=== PATIENT | female | born 1995 | race Caucasian/White ===

== ENCOUNTER 2019-03-15 03:58 | Emergency (ER) | payer OTHER, BC ==
[2019-03-15 04:08] VITALS: BP 122/83; PULSE 92; RESP 18; TEMP 98.1
--- NOTE | 2019-03-15 04:43 | ED ---
General Adult HPI - General Chief complaint: Neck Pain/Injury Stated complaint: Neck pain Source: patient Mode of arrival: ambulatory Limitations: physical limitation - History of Present Illness Initial comments: Patient is a 23-year-old female who presents to the emergency department today for evaluation of right-sided rib pain. Patient reports she began experiencing some discomfort in her right shoulder and rib area last week. On Friday she was evaluated by a chiropractor who advised her she had a rib out of place. She had a chiropractic adjustment and had athletic tape place. Patient reports that since that adjustment she feels that she is having muscle tightness around her ribs on that side and radiating to the other side and upper neck. Patient denies any headache, vision changes, focal neurologic deficits. She denies any pain with movement of her neck. She denies any ringing in her ears. Patient reports she just feels like all of her muscles are very tight. 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 She denies any fevers, chills, exertional chest pain, shortness of breath. She denies any past medical history. She has no history of DVT PE in the past. She denies any palpitations or exertional dyspnea. - Related Data Home Medications Medication Instructions Recorded Confirmed buPROPion HCL [Wellbutrin XL] 300 mg PO DAILY 03/15/19 03/15/19 clomiPRAMINE HCL 75 mg PO DAILY 03/15/19 03/15/19 Previous Rx's Medication Instructions Recorded Ibuprofen [Motrin] 800 mg PO TID #30 tab 03/15/19 Methocarbamol [Robaxin-750] 750 mg PO TID #30 tablet 03/15/19 Allergies Allergy/AdvReac Type Severity Reaction Status Date / Time No Known Allergies Allergy Verified 03/15/19 04:08 Review of Systems ROS Statement: Those systems with pertinent positive or pertinent negative responses have been documented in the HPI. ROS Other: All systems not noted in ROS Statement are negative. Past Medical History Past Medical History: No Reported History History of Any Multi-Drug Resistant Organisms: None Reported Past Surgical History: No Surgical Hx Reported Past Psychological History: Anxiety, Depression Smoking Status: Never smoker Past Alcohol Use History: None Reported Past Drug Use History: None Reported General Exam - General Exam Comments Initial Comments: Physical Exam GENERAL: Patient is well-developed and well-nourished. Patient is nontoxic and well- hydrated and is in no distress. HENT: Normocephalic, Atraumatic. EYES: PERRL, EOMI PULMONARY: Unlabored respirations. No audible rales rhonchi or wheezing was noted. CARDIOVASCULAR: There is a regular rate and rhythm without any murmurs gallops or rubs. No carotid bruits ABDOMEN: Soft and nontender with normal bowel sounds. SKIN: Skin is clear with no lesions or rashes and otherwise unremarkable. : Deferred NEUROLOGIC: Patient is alert and oriented x3. Moving all extremities spontaneously MUSCULOSKELETAL: Normal extremities with adequate strength and full range of motion. No lower extremity swelling or edema. No calf tenderness. Tenderness to palpation in the costochondral junction, tenderness to palpation along ribs 2 and 3 on the right, tenderness to palpation her tonic musculature in the right sided trapezius PSYCHIATRIC: Normal psychiatric evaluation. 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 Patient's been experiencing upper chest and shoulder pain which is worse with movement. She was evaluated and treated by chiropractor reports that she kind of feels like she is having muscle spasms at that time. Physical exam is unremarkable. There is reproducible muscular skeletal chest pain. This time we'll plan to treat for costochondritis and muscle spasm. Patient be given Toradol and Valium in the emergency department she'll be provided with a work note for today and discharged home with Motrin and Robaxin. All questions pertaining care were answered return parameters were discussed patient was discharged home in stable condition. Disposition Clinical Impression: Costochondral chest pain Disposition: HOME SELF-CARE Condition: Stable Instructions (If sedation given, give patient instructions): Costochondritis (ED) Prescriptions: Ibuprofen [Motrin] 800 mg PO TID #30 tab Methocarbamol [Robaxin-750] 750 mg PO TID #30 tablet Is patient prescribed a controlled substance at d/c from ED?: No Referrals: Karin Grier DO [Primary Care Provider] - 1-2 days
[2019-03-15] MEDS ORDERED: DIAZEPAM 5 MG TAB PO STA (05:06)
[2019-03-15] MEDS ORDERED: KETOROLAC 30 MG/ML 1 ML VIAL IM STA (05:06)
== END 2019-03-15 05:46 | disposition home or self-care (01) ==
LOC: EC 03:58
DX: R07.1 Chest pain on breathing (principal); M54.2 Cervicalgia; F41.9 Anxiety disorder, unspecified; F32.9 Major depressive disorder, single episode, unspecified; Z79.899 Other long term (current) drug therapy
CPT/HCPCS: 99283; 96372; J1885

== ENCOUNTER 2020-07-21 00:05 | Outpatient (CLI) | payer OTHER, BC ==
[2020-07-21] MEDS ORDERED: LACTATED RINGERS 1,000 ML IV SCH (01:15)
[2020-07-21 01:17] LABS: Amorphous Sediment,Urine Rare /hpf; Appearance,Urine Cloudy (Clear); Bilirubin,Urine Negative (Negative); Blood,Urine Negative (Negative); Color,Urine Light Yellow; Glucose,Urine (UA) Negative (Negative); Ketones,Urine Negative (Negative); Leukocyte Esterase,Urine Small (Negative); Mucus,Urine Rare /hpf; Nitrite,Urine Negative (Negative); PH, Urine 6.5 (5.0-8.0); Protein,Urine Negative (Negative); RBC,Urine 1 /hpf (0-5); Specific Gravity,Urine 1.008 (1.001-1.035); Squamous Epithelial Cell,Urine 1 /hpf (0-4); Urobilinogen,Urine <2.0 mg/dL (<2.0); WBC,Urine 8 /hpf (0-5)
[2020-07-21] MEDS ORDERED: TERBUTALINE 1 MG/ML VIAL SQ PRN (01:52)
[2020-07-21 03:07] VITALS: RESP 16; TEMP 97.8
[2020-07-21 03:10] VITALS: BP 127/63; PULSE 76
--- NOTE | 2020-07-29 09:17 | P.MSEPDOC ---
Presenting Problems - Arrival Data Date of Arrival on Unit: 07/21/20 Time of Arrival on Unit: 00:05 Mode of Transport: Ambulatory - Complaint OB-Reason for Admission/Chief Complaint: Decreased Movement Comment: Intermittant cramping. Medical History - Information : 1 Para: 0 Term: 0 : 0 Abortions: Spontaneous or Elective: 0 Number of Living Children: 0 - Gestational Age Gestational Age by REGINA (wks/days): 32 Weeks and 2 Days Review of Systems - Review of Systems Constitutional: No problems Breast: No problems ENT: No problems Cardiovascular: No problems Respiratory: No problems Gastrointestinal: No problems Genitourinary: No problems Musculoskeletal: No problems Neurological: No problems Skin: No problems Vital Signs - Temperature Temperature: 97.8 F - Pulse Right Brachial Pulse Rate: 76 Pulse Assessment Method: Automatic Cuff - Respirations Respiratory Rate: 16 Oxygen Delivery Method: Room Air O2 Sat by Pulse Oximetry: 99 - Blood Pressure Right Arm Blood Pressure: 127/63 Blood Pressure Mean: 84 Blood Pressure Source: Automatic Cuff Medical Screen Scoring (Pre) - Cervical Exam Dilation: 1-3 cm = 1 Membranes: Intact - Uterine Contractions Frequency: < 36 weeks = 6 Duration: N/A Intensity: N/A - Maternal Vital Signs Maternal Temperature: N/A Maternal Blood Pressure: N/A Signs of Preeclampsia: N/A Maternal Respirations: N/A - Maternal Trauma Maternal Trauma: N/A - Assessment - Baby A Baseline FHR: 140 Heart Rate - NICHD Category: Category I (Normal) = 0 NST: Reactive Position: N/A Station: N/A - Total Score - Baby A Total Score - Baby A: 7 - Total Score - Baby B Total Score - Baby B: 7 - Total Score - Baby C Total Score - Baby C: 7 - Level of Risk - Baby A Level of Risk - Baby A: Medium (6-9) - Level of Risk - Baby B Level of Risk - Baby B: Medium (6-9) - Level of Risk - Baby C Level of Risk - Baby C: Medium (6-9) Physician Notification (Pre) - Physician Notified Physician Notified Date: 07/21/20 Physician Notified Time: 01:52 New Order Received: Yes - Notification Comment Comment: Dr. Mario given update on pt. No change in pt vag exam. Contractions remain 2-3. minutes a part. UA results read back to Order recieved to initiate Terbutiline. protocol. To call with pt update. Medical Screen Scoring (Post) - Cervical Exam Dilation: 1-3 cm = 1 Membranes: Intact - Uterine Contractions Frequency: N/A Duration: N/A Intensity: N/A - Maternal Vital Signs Maternal Temperature: N/A Maternal Blood Pressure: N/A Signs of Preeclampsia: N/A Maternal Respirations: N/A - Pain Assessment Pain Scale Used: Numeric (1 - 10) Pain Intensity: 0 - Maternal Trauma Maternal Trauma: N/A - Assessment - Baby A Heart Rate: 140 Heart Rate - NICHD Category: Category I (Normal) = 0 NST: Reactive Position: N/A Station: N/A - Total Score Total Score - Baby A: 1 Total Score - Baby B: 1 Total Score - Baby C: 1 - Post Treatment Level of Risk Post Treatment Level of Risk - Baby A: Low (0-5) Post Treatment Level of Risk - Baby B: Low (0-5) Post Treatment Level of Risk - Baby C: Low (0-5) Physician Notification (Post) - Physician Notified Physician Notified Date: 07/21/20 Physician Notified Time: 02:53 Physician/Practitioner Notified:: cosme Mario New Order Received: Yes - Notification Comment Comment: Dr. Mario given update on pt. Pt recieved once dose of 0.25 mg terbutaline. No. contractions noted per pt or toco following 30 minutes after. FHT with moderate. variability noted. VS WNL. Orders receieved to d/c pt to home. Disposition - Disposition OB Disposition: Discharge to home Discharge Date: 07/21/20 Discharge Time: 03:05 I agree with the RN Medical Screening Exam: Yes Risk & Benefit of care provided described in d/c instruction: Yes Diagnosis: FALSE LABOR BEFORE 37 COMPLETED WEEKS OF GEST, THIRD TRI
== END 2020-07-21 03:05 | disposition home or self-care (01) ==
LOC: FBPOP 00:05
PROVIDERS: ATTEND Obstetrics & Gynecology Obstetrics
DX: O47.03 False labor before 37 completed weeks of gestation, third trimester (principal); Z3A.32 32 weeks gestation of pregnancy
CPT/HCPCS: 59025; 99214; 96360; 96361; 96372; 81001; J3105

== ENCOUNTER 2020-09-06 14:15 | Inpatient (IN) | payer BC ==
[2020-09-06] MEDS ORDERED: LIDOCAINE 0.5% (PF) 5 MG/ML (50 ML SDV) SQ PRN (16:58)
[2020-09-06] MEDS ORDERED: OXYTOCIN 10 UNIT/ML 1 ML VIAL IM PRN (16:58)
[2020-09-06] MEDS ORDERED: BUTORPHANOL 1 MG/ML 1 ML VIAL IV PRN (16:58)
[2020-09-06] MEDS ORDERED: METHYLERGONOVINE 0.2 MG/ML 1 ML AMP IM PRN (16:58)
[2020-09-06] MEDS ORDERED: CARBOPROST TROMETHAMINE 250 MCG/ML 1 ML AMP IM PRN (16:58)
[2020-09-06] MEDS ORDERED: TERBUTALINE 1 MG/ML VIAL SQ PRN (16:58)
--- NOTE | 2020-09-06 16:58 | P.HPOB ---
History of Present Illness H&P Date: 09/06/20 Chief Complaint: IUP @ 39 0/7 weeks This is a 24-year-old 1 para 0 at 39 0/7 weeks that was seen in the office today for routine visit and ultrasound. Ultrasound revealing a normal-size fetus 60th percentile but amniotic fluid index was noted to be 4 consistent with a diagnosis of oligohydramnios. Patient was examined and noted to be 3 cm dilated in addition. Patient was noting decreased movement at that time. Patient denied contractions vaginal bleeding or loss of fluid at any time since the last visit. Patient has been receiving routine care with an essentially uncomplicated. On bloodwork this patient has a blood type of A+, rubella status immune, hepatitis B surface antigen negative, HIV negative, RPR nonreactive, GBS negative. Review of Systems Constitutional: Denies chills, Denies fatigue, Denies fever Ears, nose, mouth and throat: Denies headache Cardiovascular: Reports leg edema Respiratory: Denies dyspnea Gastrointestinal: Denies constipation, Denies diarrhea, Denies nausea, Denies vomiting Genitourinary: Reports Past Medical History Past Medical History: No Reported History History of Any Multi-Drug Resistant Organisms: None Reported Past Surgical History: No Surgical Hx Reported Additional Past Surgical History / Comment(s): WISDOM TEETH Past Anesthesia/Blood Transfusion Reactions: No Reported Reaction Past Psychological History: Anxiety, Depression Smoking Status: Never smoker Past Alcohol Use History: None Reported Past Drug Use History: None Reported - Past Family History Father Family Medical History: No Reported History Medications and Allergies Home Medications Medication Instructions Recorded Confirmed Type buPROPion HCL [Wellbutrin XL] 150 mg PO DAILY 03/15/19 09/06/20 History Pnv,Calcium 72/Iron/Folic Acid 1 tab PO DAILY 07/21/20 09/06/20 History [ Plus Tablet] metFORMIN HCL [metFORMIN HCL ER] 750 mg PO DAILY 07/21/20 09/06/20 History Allergies Allergy/AdvReac Type Severity Reaction Status Date / Time No Known Allergies Allergy Verified 09/06/20 14:43 Exam Osteopathic Statement: *. No significant issues noted on an osteopathic structural exam other than those noted in the History and Physical/Consult. Vital Signs Temp Pulse Resp BP Pulse Ox 09/06/20 14:43 96.3 F L 108 H 18 133/91 98 Intake and Output 09/06/20 09/06/20 09/06/20 06:59 14:59 22:59 Other: Weight 124.738 kg Targeted physical exam is performed in this date and a and p technician a well-nourished well-developed female in no obvious distress, breathing is noted to nonlabored, heart has regular rate and rhythm, abdomen is gravid and appropriate for gestational age, heart tones returned be category 1 she is not nayana, cervical exam is deferred as she was 3 cm in the office. Assessment and Plan (1) Term Current Visit: Yes Status: Acute Code(s): Z34.90 - ENCNTR FOR SUPRVSN OF NORMAL , UNSP, UNSP TRIMESTER SNOMED Code(s): 07612698 (2) Oligohydramnios Current Visit: Yes Status: Acute Code(s): O41.00X0 - OLIGOHYDRAMNIOS, UNSP TRIMESTER, NOT APPLICABLE OR UNSP SNOMED Code(s): 16703928 Plan: This very 4-year-old is admitted to labor and delivery at 39 0/7 weeks for oligohydramnios. Patient has category 1 heart tones, induction of labor began at 5 AM. Patient will be nothing by mouth after midnight. Patient states plan of care and all questions are answered.
[2020-09-06] MEDS ORDERED: OXYTOCIN 30 UNITS/500 ML NS 30 UNIT in SALINE 1 500ML.BAG IV SCH (17:00)
[2020-09-06 17:54] LABS: Basophils % (A) 0 %; Eosinophils # (A) 0.1 k/uL (0-0.7); Eosinophils % (A) 1 %; HCT 39.8 % (34.0-46.0); HGB 13.4 gm/dL (11.4-16.0); Lymphocytes # (A) 1.9 k/uL (1.0-4.8); Lymphocytes % (A) 16 %; MCH 27.8 pg (25.0-35.0); MCHC 33.6 g/dL (31.0-37.0); MCV 82.6 fL (80.0-100.0); Mean Platelet Volume 10.5; Monocytes # (A) 0.5 k/uL (0-1.0); Monocytes % (A) 5 %; Neutrophils % (A) 77 %; Platelet Count 173 k/uL (150-450); RBC 4.82 m/uL (3.80-5.40); RDW 14.8 % (11.5-15.5); WBC 11.7 k/uL (3.8-10.6)
[2020-09-06] MEDS: LACTATED RINGERS 1,000 ML IV SCH (19:40)
[2020-09-07] MEDS: LACTATED RINGERS 1,000 ML IV SCH ×2 (06:45)
[2020-09-07] MEDS ORDERED: PRENATAL VIT-IRON-FOLIC ACID 1 EACH CAP PO SCH (09:00)
[2020-09-07] MEDS ORDERED: SIMETHICONE 80 MG CHEWABLE PO PRN (12:57)
[2020-09-07] MEDS ORDERED: ZOLPIDEM 5 MG TAB PO PRN (12:57)
[2020-09-07] MEDS ORDERED: diphenhydrAMINE 50 MG/ML 1 ML VIAL IVP PRN ×2 (12:57)
[2020-09-07] MEDS ORDERED: HYDROcodone/APAP 5-325MG 1 EACH TAB PO PRN (12:57)
[2020-09-07] MEDS ORDERED: diphenhydrAMINE 50 MG CAP PO PRN (12:57)
[2020-09-07] MEDS ORDERED: BENZOCAINE/MENTHOL SPRAY 1 GM/SPRAY AEROSOL TOPICAL PRN (12:57)
[2020-09-07] MEDS ORDERED: HYDROCORTISONE 2.5% RECTAL CREAM 30 GM TUBE RECTAL PRN (12:57)
[2020-09-07] MEDS ORDERED: ACETAMINOPHEN TAB 325 MG TAB PO PRN (12:57)
[2020-09-07] MEDS ORDERED: diphenhydrAMINE 25 MG CAP PO PRN (12:57)
[2020-09-07] MEDS ORDERED: LANOLIN CREAM 5 GM TUBE TOPICAL PRN (12:57)
[2020-09-07] MEDS ORDERED: OXYTOCIN 20 UNITS/1000 ML NS 1,000 ML IV SCH (13:00)
--- NOTE | 2020-09-07 13:03 | P.PROBDLV ---
Vaginal Delivery Note - . Vaginal Delivery Note: this pleasant 24-year-old 1 para 0 at 39 1/7 weeks presented to labor and delivery yesterday afternoon diagnosis of oligohydramnios was made, amniotic fluid index was noted to be 4 in the office. Patient had category 1 heart tones throughout the night. This morning she was started on Pitocin for induction of labor, per hospital protocol. Pt did undergo amniotomy and scant fluid was obtained and it appeared clear. Patient progressed through labor eventually becoming uncomfortable and requesting Stadol 1. Patient declined epidural placement. Patient quickly progressed to complete began pushing and had a normal spontaneous vaginal delivery of an occiput posterior at 1239, weight of 6 lbs. 10 oz. or 3015 gms, Apgars of 8 and 9 at one and 5 minutes respectively. after two-minute delay the umbilical cord was doubly clamped and cut and the placenta was delivered spontaneously intact with a three-vessel cord being noted. On inspection of the patient's vaginal vault a second-degree vaginal laceration was noted, and this was repaired in the usual fashion with 3- 0 repeat after instillation of lidocaine. uterus was noted to be firm and below the umbilicus after delivery. Estimated blood loss 200 mL Patient and infant tolerated delivery well and are resting comfortably.
[2020-09-07] MEDS: buPROPion XL 150 MG TAB.ER.24H PO SCH (14:58)
[2020-09-07] MEDS: IBUPROFEN 600 MG TAB PO PRN (14:58)
[2020-09-08] MEDS: IBUPROFEN 600 MG TAB PO PRN (00:13)
[2020-09-08 01:01] VITALS: RESP 16
[2020-09-08] MEDS: SENNOSIDES-DOCUSATE SODIUM 1 EACH TAB PO SCH ×2 (01:01→08:23)
[2020-09-08] MEDS: LACTATED RINGERS 1,000 ML IV SCH (01:02)
[2020-09-08 01:06] VITALS: PULSE 95; TEMP 98.1
[2020-09-08 08:23] VITALS: BP 106/73
--- NOTE | 2020-09-08 08:43 | P.DS ---
Providers Date of admission: 09/06/20 14:15 Expected date of discharge: 09/08/20 Attending physician: Usha Mario Primary care physician: Stated None - Discharge Diagnosis(es) (1) Term Current Visit: Yes Status: Acute (2) Oligohydramnios Current Visit: Yes Status: Acute (3) Status post vaginal delivery Current Visit: Yes Status: Acute (4) Obstetric vaginal laceration Current Visit: Yes Status: Acute Hospital Course: this is a pleasant 24-year-old 1 para 0 that presented to the office for routine visit at 39-0/7 weeks. Patient had an ultrasound for size greater than dates, ultrasound revealing oligohydramnios. Patient was sent to the hospital for monitoring and induction of labor. Patient had a reactive NST upon arrival to the hospital. Early that morning patient was started on Pitocin for induction of labor. Patient underwent amniotomy were scant fluid was obtained. Patient progressed through labor getting Stadol 1 for analgesia. Patient progressed to complete began pushing and had a normal spontaneous vaginal delivery of a viable male infant weight of 6 lbs. 10 oz. with Apgars of 8 and 9 at one and 5 minutes respectively. Infant was noted to be in the occiput posterior presentation at . Patient did sustain a second-degree vaginal laceration which was repaired in the usual fashion. Patient's post course has been uneventful. Patient is ambulating and voiding without difficulty. She is tolerating a regular diet without nausea or vomiting. She is breast-feeding without difficulty. Patient would like discharge home at 24 hours. Patient Condition at Discharge: Good Plan - Discharge Summary New Discharge Prescriptions: No Action buPROPion HCL [Wellbutrin XL] 150 mg PO DAILY Pnv,Calcium 72/Iron/Folic Acid [ Plus Tablet] 1 tab PO DAILY metFORMIN HCL [metFORMIN HCL ER] 750 mg PO DAILY Discharge Medication List buPROPion HCL [Wellbutrin XL] 150 mg PO DAILY 03/15/19 [History] Pnv,Calcium 72/Iron/Folic Acid [ Plus Tablet] 1 tab PO DAILY 07/21/20 [History] metFORMIN HCL [metFORMIN HCL ER] 750 mg PO DAILY 07/21/20 [History] Follow up Appointment(s)/Referral(s): Usha Mario DO [Doctor of Osteopathic Medicine] - 4 Weeks Patient Instructions/Handouts: Vaginal Delivery (DC), Vaginal Delivery (GEN) Discharge Disposition: HOME SELF-CARE
[2020-09-08] MEDS: buPROPion XL 150 MG TAB.ER.24H PO SCH (09:02)
== END 2020-09-08 12:50 | disposition home or self-care (01) | DRG 807 ==
LOC: 4FBP 14:15
PROVIDERS: ADMIT Obstetrics & Gynecology Obstetrics; ATTEND Obstetrics & Gynecology Obstetrics
PROC: 00HU33Z Insertion of Infusion Device into Spinal Canal, Percutaneous Approach (ICD-10-PCS; principal; 2020-09-07)
PROC: 10907ZC Drainage of Amniotic Fluid, Therapeutic from Products of Conception, Via Natural or Artificial Opening (ICD-10-PCS; principal; 2020-09-07)
PROC: 3E0R3BZ Introduction of Anesthetic Agent into Spinal Canal, Percutaneous Approach (ICD-10-PCS; principal; 2020-09-07)
PROC: 0KQM0ZZ Repair Perineum Muscle, Open Approach (ICD-10-PCS; principal; 2020-09-07)
PROC: 3E033VJ Introduction of Other Hormone into Peripheral Vein, Percutaneous Approach (ICD-10-PCS; principal; 2020-09-07)
PROC: 10E0XZZ Delivery of Products of Conception, External Approach (ICD-10-PCS; principal; 2020-09-07)
DX: O41.03X0 Oligohydramnios, third trimester, not applicable or unspecified (principal); Z37.0 Single live birth; O70.1 Second degree perineal laceration during delivery; O99.344 Other mental disorders complicating childbirth; F32.9 Major depressive disorder, single episode, unspecified; F41.9 Anxiety disorder, unspecified; Z3A.39 39 weeks gestation of pregnancy; Z79.84 Long term (current) use of oral hypoglycemic drugs; Z79.899 Other long term (current) drug therapy
CPT/HCPCS: 85025; 86850; 86900; 86901

== ENCOUNTER → 2020-11-27 | Outpatient (CLI) | payer OTHER ==
--- NOTE | 2020-11-27 07:56 | US ---
EXAMINATION TYPE: US abdomen complete DATE OF EXAM: 11/27/2020 COMPARISON: NONE CLINICAL HISTORY: R10.11 Rt upper quadrant pain. EXAM MEASUREMENTS: Liver Length: 18.3 cm Gallbladder Wall: 0.2 cm CBD: 0.4 cm Spleen: 10.0 cm Right Kidney: 12.9 x 4.3 x 3.7 cm Left Kidney: 10.8 x 4.4 x 3.6 cm Pancreas: Tail obscured by overlying bowel gas, visualized portions wnl Liver: Heterogeneous, measuring upper limits of normal Gallbladder: Multiple stones visualized Evidence for sonographic Marin's sign: No CBD: wnl Spleen: wnl Right Kidney: No hydronephrosis or masses seen Left Kidney: No hydronephrosis or masses seen Upper IVC: wnl Abd Aorta: wnl The liver is heterogeneous. IMPRESSION: 1. Heterogenous liver can be compatible some mild fatty infiltration.
--- NOTE | 2020-11-27 10:31 | FL ---
EXAMINATION: Upper GI examination DATE: 11/27/2020 CLINICAL INDICATION: 25-year-old female R10.11, right upper quadrant pain. COMPARISON: None Total Fluoroscopy Time: 1 minute 19 seconds Total images: 29. FINDINGS: The esophagus has a normal course, caliber, motility and mucosa. Only minimal contrast remains within the distal esophagus on the upright swallowing. When the patient drinks in the prone LAURA position, t here is complete clearing from the esophagus. No hiatal hernia is identified. There is no gastroesophageal reflux identified. The stomach and duodenum are free of any persistent filling defect and demonstrate a normal mucosal p attern. IMPRESSION: Normal upper GI examination.
== END | disposition home or self-care (01) ==
LOC: RADUSWWP 07:23
PROVIDERS: ATTEND Family Medicine
DX: R93.2 Abnormal findings on diagnostic imaging of liver and biliary tract (principal); R10.11 Right upper quadrant pain
CPT/HCPCS: 36415; 74240; 76700; 84703

== ENCOUNTER 2020-12-18 06:29 | Day surgery (SDC) | payer OTHER ==
[2020-12-14 09:59] VITALS: BMI 41.5
[~2020-12-18 06:29] MED LIST: ACETAMINOPHEN TAB 500 MG TAB PO PRN; DEXAMETHASONE SOD PHOSPHATE 4 MG/ML 1 ML VIAL IV ONE; HEPARIN SODIUM,PORCINE 5,000 UNIT/ML 1 ML VIAL SQ PRN; LACTATED RINGERS 1,000 ML IV SCH; MIDAZOLAM 2 MG/2 ML VIAL IV PRN; ONDANSETRON 4 MG/2 ML VIAL IVP ONE; SCOPOLAMINE 1.5MG/72HR PATCH TRANSDERM ONE
[2020-12-18] MEDS ORDERED: HYDROmorphone 0.5 MG/0.5 ML SYRINGE IVP PRN (07:00)
[2020-12-18 07:08] VITALS: RESP 16
[2020-12-18] MEDS ORDERED: LIDOCAINE 1% (10MG/ML) FOR IV START INTRADERMA ONE (07:12)
[2020-12-18] MEDS ORDERED: NEOSTIGMINE 1 MG/ML 10 ML VIAL ONE (07:35)
[2020-12-18] MEDS ORDERED: MIDAZOLAM 2 MG/2 ML VIAL ONE (07:35)
[2020-12-18] MEDS ORDERED: fentaNYL (PF) 50 MCG/ML 2 ML AMP ONE (07:35)
[2020-12-18] MEDS ORDERED: PROPOFOL 10 MG/ML 20 ML VIAL IV ONE (07:35)
[2020-12-18] MEDS ORDERED: GLYCOPYRROLATE 0.2 MG/ML 2 ML VIAL ONE (07:35)
[2020-12-18] MEDS ORDERED: SUCCINYLCHOLINE CHLORIDE 100 MG/5 ML SYR IV ONE (07:35)
[2020-12-18] MEDS ORDERED: LIDOCAINE 1% INJ 10MG/ML (20 ML MDV) ONE (07:35)
[2020-12-18] MEDS ORDERED: ROCURONIUM 10 MG/ML (5 ML VIAL) IV ONE (07:35)
[2020-12-18] MEDS ORDERED: BUPIVACAINE-EPI 0.5%-1:200,000 10 ML VIAL SQ ONE (08:11)
--- NOTE | 2020-12-18 08:24 | P.GSHP ---
History of Present Illness H&P Date: 12/18/20 Chief Complaint: Right upper quadrant pain Asst. 25-year-old female who's echo was run quadrant pain. Her recent social shows evidence of cholelithiasis. Past Medical History Past Medical History: No Reported History Additional Past Medical History / Comment(s): intermittent abdominal pain,hx polycystic ovarian disease History of Any Multi-Drug Resistant Organisms: None Reported Past Surgical History: No Surgical Hx Reported Additional Past Surgical History / Comment(s): WISDOM TEETH Past Anesthesia/Blood Transfusion Reactions: No Reported Reaction Additional Past Anesthesia/Blood Transfusion Reaction / Comment(s): no hx blood transfusion Smoking Status: Never smoker - Past Family History Father Family Medical History: No Reported History Medications and Allergies Home Medications Medication Instructions Recorded Confirmed Type buPROPion HCL [Wellbutrin XL] 300 mg PO QAM 03/15/19 12/18/20 History Pnv,Calcium 72/Iron/Folic Acid 1 tab PO DAILY 07/21/20 12/18/20 History [ Plus Tablet] metFORMIN HCL [metFORMIN HCL ER] 750 mg PO DAILY 07/21/20 12/18/20 History Acetaminophen [Tylenol Extra 500 - 1,000 mg PO Q6H PRN 12/14/20 12/18/20 History Strength] Allergies Allergy/AdvReac Type Severity Reaction Status Date / Time No Known Allergies Allergy Verified 12/18/20 06:54 Surgical - Exam Vital Signs Temp Pulse Resp BP Pulse Ox 97.4 F L 93 16 108/74 97 12/18/20 07:03 12/18/20 07:03 12/18/20 07:03 12/18/20 07:03 12/18/20 07:03 - General well developed, well nourished, no distress - Eyes PERRL - ENT normal pinna - Neck no masses - Respiratory normal expansion - Cardiovascular Rhythm: regular - Abdomen Abdomen: soft, non tender Assessment and Plan Assessment: Lithiasis. We will perform laparoscopic cholecystectomy
--- NOTE | 2020-12-18 08:26 | P.OP ---
Date of Procedure: 12/18/20 Preoperative Diagnosis: Cholelithiasis Postoperative Diagnosis: Cholelithiasis Procedure(s) Performed: Laparoscopic cholecystectomy Anesthesia: JAY Surgeon: Julio Cesar Rivers Estimated Blood Loss (ml): 10 Pathology: other (Gallbladder) Condition: stable Disposition: PACU Description of Procedure: The patient was placed on the operating table. The patient received a general endotracheal tube anesthesia. The patients abdomen was prepped and draped in the usual sterile fashion. Through an infraumbilical stab incision, the fascia of the anterior abdominal wall was grasped with a pair of Kochers and then the Veress needle was placed in the peritoneal cavity. Position of the Veress needle was confirmed with positive drop test. The abdomen was then insufflated. After adequate insufflation, the 10 mm trocar was placed in the peritoneal cavity. Following this the laparoscope was placed in the peritoneal cavity. The patient was placed in the head-up, right side up position and then a 5 mm trocar was placed in the right lateral and right subcostal position under direct visualization. A 8 mm trocar was placed in the epigastric position. The gallbladder was grasped in the fundus and infundibulum. Traction on the gallbladder was placed in the lateral and the cephalad positions. The triangle of Calot was visualized.. The cystic duct was bluntly dissected until the union of the cystic duct and common bile duct was seen. A critical view of safety was achieved. The cystic duct was then divided and sealed with the Harmonic scissors. A PDS Endoloop was then placed throughout the cystic duct stump. The cystic artery divided and sealed with the Harmonic scissors. The gallbladder was then removed from the liver bed using Harmonic scissors. The gallbladder was then extracted through the epigastric port site. Operative field was checked for any bleeding spots and Harmonic scissors was used to coagulate the liver bed. The abdomen was irrigated. The trocars were removed. The skin was closed using interrupted 3-0 Vicryl suture. Dermabond dressing were applied. The patient tolerated the procedure well.
[2020-12-18 08:29] VITALS: TEMP 97.6
[2020-12-18 09:56] VITALS: BP 132/81; PULSE 79
== END 2020-12-18 10:29 | disposition home or self-care (01) ==
LOC: OR 06:29
PROVIDERS: ATTEND Surgery
DX: K80.10 Calculus of gallbladder with chronic cholecystitis without obstruction (principal); E28.2 Polycystic ovarian syndrome; Z98.890 Other specified postprocedural states; Z79.84 Long term (current) use of oral hypoglycemic drugs; Z79.899 Other long term (current) drug therapy
CPT/HCPCS: 81025; 88304; 47562; J2250; J1644; J1100; J2710; J0690; J2405; J2001; J3010; J0330; J2704

== ENCOUNTER 2022-10-19 10:44 | Outpatient (CLI) | payer OTHER ==
[2022-10-19 12:42] VITALS: BP 111/60; PULSE 78; RESP 16; TEMP 97.6
--- NOTE | 2022-11-05 12:16 | P.MSEPDOC ---
Presenting Problems - Arrival Data Date of Arrival on Unit: 10/19/22 Time of Arrival on Unit: 10:44 Mode of Transport: Ambulatory - Complaint OB-Reason for Admission/Chief Complaint: Decreased Movement Comment: reports decreased movement and occasional lower abd pressure Medical History - Information : 2 Para: 1 Term: 1 : 0 Abortions: Spontaneous or Elective: 0 Number of Living Children: 1 - Gestational Age Gestational Age by REGINA (wks/days): 37 Weeks and 5 Days Review of Systems - Review of Systems Constitutional: No problems Breast: No problems ENT: No problems Cardiovascular: No problems Respiratory: No problems Gastrointestinal: No problems Genitourinary: No problems Musculoskeletal: No problems Neurological: No problems Skin: No problems Vital Signs - Temperature Temperature: 97.6 F Temperature Source: Temporal Artery Scan - Pulse Right Brachial Pulse Rate: 78 Pulse Assessment Method: Automatic Cuff - Respirations Respiratory Rate: 16 Oxygen Delivery Method: Room Air O2 Sat by Pulse Oximetry: 98 - Blood Pressure Right Arm Blood Pressure: 111/60 Blood Pressure Mean: 77 Blood Pressure Source: Automatic Cuff Medical Screen Scoring - Cervical Exam Dilation (cm): 2 Station: -3 Membranes: Intact - Assessment - Baby A Baseline FHR: 135 Heart Rate - NICHD Category: Category I (Normal) NST: Reactive Physician Notification - Physician Notified Physician Notified Date: 10/19/22 Physician Notified Time: 12:00 Physician: Josette Medina Order Received: Yes (dc home) Maternal Triage Index - Urgent/Priority 2 Urgent Priority 2: Yes Provider Notified: Josette Medina Provider Notified Time: 12:00 Criteria Met for Priority 2: reactive nst, pt reported + fm shortly after arrival to triage, cervical exam remains unchanged from last check up Disposition - Disposition OB Disposition: Discharge to home, Written follow up instructions reviewed Discharge Date: 10/19/22 Discharge Time: 12:10 I agree with the RN Medical Screening Exam: Yes Case reviewed; plan agreed upon as documented in EMR&OBIX.: Yes Diagnosis: decreased movement
== END 2022-10-19 12:10 | disposition home or self-care (01) ==
LOC: FBPOP 10:44
PROVIDERS: ATTEND Obstetrics & Gynecology
DX: O36.8131 Decreased fetal movements, third trimester, fetus 1 (principal); Z3A.37 37 weeks gestation of pregnancy
CPT/HCPCS: 59025; 99213

== ENCOUNTER 2022-10-27 13:35 | Outpatient (CLI) | payer OTHER ==
[2022-10-27 15:23] VITALS: BP 101/58; PULSE 90; RESP 16; TEMP 98.1
--- NOTE | 2022-10-29 13:33 | P.MSEPDOC ---
Presenting Problems - Arrival Data Date of Arrival on Unit: 10/27/22 Time of Arrival on Unit: 13:40 Mode of Transport: Ambulatory - Complaint OB-Reason for Admission/Chief Complaint: Possible Onset of Labor Comment: spotting and contx's since 1030 am today. hx of intercourse this am and drs visit on with vaginal exam. scheduled for induction of labor tomorrow. Medical History - Information : 2 Para: 1 Term: 1 : 0 Abortions: Spontaneous or Elective: 0 Number of Living Children: 1 - Gestational Age Gestational Age by REGINA (wks/days): 38 Weeks and 6 Days Review of Systems - Review of Systems Constitutional: No problems Breast: No problems ENT: No problems Cardiovascular: No problems Respiratory: No problems Gastrointestinal: No problems Genitourinary: No problems Musculoskeletal: No problems Neurological: No problems Skin: No problems Vital Signs - Temperature Temperature: 98.1 F Temperature Source: Temporal Artery Scan - Pulse Apical Pulse Rate: 90 Pulse Assessment Method: Automatic Cuff - Respirations Respiratory Rate: 16 Oxygen Delivery Method: Room Air O2 Sat by Pulse Oximetry: 95 - Blood Pressure Right Arm Blood Pressure: 101/58 Blood Pressure Mean: 72 Blood Pressure Source: Automatic Cuff Medical Screen Scoring - Cervical Exam Dilation (cm): 2.5 Effacement (%): 60 Station: -2 Membranes: Intact - Uterine Contractions Intensity: Mild Resting: Soft to palpation - Assessment - Baby A Baseline FHR: 145 Heart Rate - NICHD Category: Category I (Normal) NST: Reactive Physician Notification - Physician Notified Physician Notified Date: 10/27/22 Physician Notified Time: 14:30 Physician: Kristyn More Order Received: Yes (may discharge home with instructions) - Notification Comment Comment: return if need to. or return for induction in am tomorrow 0600 Maternal Triage Index - Non-Urgent/Priority 4 Non-Urgent Priority 4: Yes Criteria Met for Priority 4: spotting and contx since 1030 am. reactive nst. irreg contx. vaginal exam unchanged since . small amt brownish discharge on glove with exam. - Scheduled/Requesting Priority 5 Scheduled/Requesting Priority 5: Yes Criteria Met for Priority 5: n/a Disposition - Disposition OB Disposition: Discharge to home, Written follow up instructions reviewed Discharge Date: 10/27/22 Discharge Time: 14:45 I agree with the RN Medical Screening Exam: Yes Physician's MSE Comment: I have neither seen nor examined the patient Case reviewed; plan agreed upon as documented in EMR&OBIX.: Yes Diagnosis: RELATED CONDITIONS, UNSPECIFIED, THIRD TRIMESTER
== END 2022-10-27 14:45 | disposition home or self-care (01) ==
LOC: FBPOP 13:35
PROVIDERS: ATTEND Obstetrics & Gynecology
DX: O26.893 Other specified pregnancy related conditions, third trimester (principal); Z3A.38 38 weeks gestation of pregnancy; N93.9 Abnormal uterine and vaginal bleeding, unspecified
CPT/HCPCS: 59025; 99213

== ENCOUNTER 2022-10-28 05:58 | Inpatient (IN) | payer OTHER ==
[2022-10-28] MEDS ORDERED: TERBUTALINE 1 MG/ML VIAL SQ PRN (06:04)
[2022-10-28] MEDS ORDERED: LIDOCAINE 0.5% (PF) 5 MG/ML (50 ML SDV) SQ PRN (06:04)
[2022-10-28] MEDS ORDERED: OXYTOCIN 30 UNITS/500 ML NS 30 UNIT in SALINE 1 500ML.BAG IV SCH ×2 (06:15→13:45)
[2022-10-28] MEDS: LACTATED RINGERS 1,000 ML IV SCH ×2 (06:15→17:27)
[2022-10-28 06:33] LABS: Basophils % (A) 0 %; Eosinophils # (A) 0.1 k/uL (0-0.7); Eosinophils % (A) 1 %; HCT 33.9 % (34.0-46.0); HGB 11.1 gm/dL (11.4-16.0); Lymphocytes # (A) 1.3 k/uL (1.0-4.8); Lymphocytes % (A) 15 %; MCH 25.6 pg (25.0-35.0); MCHC 32.7 g/dL (31.0-37.0); MCV 78.3 fL (80.0-100.0); Mean Platelet Volume 9.9; Monocytes # (A) 0.6 k/uL (0-1.0); Monocytes % (A) 6 %; Neutrophils # (A) 6.5 k/uL (1.3-7.7); Neutrophils % (A) 75 %; Platelet Count 156 k/uL (150-450); RBC 4.33 m/uL (3.80-5.40); RDW 15.1 % (11.5-15.5); WBC 8.6 k/uL (3.8-10.6)
[2022-10-28] MEDS ORDERED: BENZOCAINE/MENTHOL SPRAY 1 GM/SPRAY AEROSOL TOPICAL PRN (13:39)
[2022-10-28] MEDS ORDERED: ACETAMINOPHEN TAB 325 MG TAB PO PRN (13:39)
[2022-10-28] MEDS ORDERED: HYDROCORTISONE 2.5% RECTAL CREAM 30 GM TUBE RECTAL PRN (13:39)
[2022-10-28] MEDS ORDERED: diphenhydrAMINE 25 MG CAP PO PRN (13:39)
[2022-10-28] MEDS ORDERED: SIMETHICONE 80 MG CHEWABLE PO PRN (13:39)
[2022-10-28] MEDS ORDERED: LANOLIN CREAM 5 GM TUBE TOPICAL PRN (13:39)
[2022-10-28] MEDS ORDERED: diphenhydrAMINE 50 MG CAP PO PRN (13:39)
[2022-10-28] MEDS ORDERED: diphenhydrAMINE 50 MG/ML 1 ML VIAL IVP PRN ×2 (13:39)
[2022-10-28] MEDS ORDERED: ZOLPIDEM 5 MG TAB PO PRN (13:39)
--- NOTE | 2022-10-28 13:39 | P.PROBDLV ---
Vaginal Delivery Note - . Vaginal Delivery Note: Findings viable female infant delivered at 1318, weight of 7 lbs. 14 oz., Apgars of 8 and 9 at one and 5 minutes respectively. This is a 26-year-old at 39-0/7 weeks that presented to labor and delivery this a.m. for elective induction of labor. Patient had been receiving routine care which has been essentially uncomplicated. Patient was admitted and Pitocin induction of labor was begun. Amniotomy was performed and clear fluid was obtained. Patient progressed through labor eventually progressing to complete dilation. Patient began pushing and had a normal spontaneous vaginal delivery of a viable female at 1318, a loose nuchal was delivered through. Spontaneous cry was noted at . After two-minute delayed the umbilical cord was doubly clamped and cut and the was handed to the maternal abdomen. The placenta was then delivered spontaneously intact with three-vessel cord being noted. On inspection the patient's vaginal vault a right labial laceration was appreciated this was instilled with lidocaine repaired in the usual fashion with 4-0 chromic. Uterus is noted to be firm and below the umbilicus at this time. Lochia was noted to be moderate. All counts were noted to be correct 2 at the end of the delivery. Patient and infant tolerated delivery well and are resting comfortably.
[2022-10-28 14:10] VITALS: RESP 16
[2022-10-28] MEDS: IBUPROFEN 600 MG TAB PO SCH (15:23)
[2022-10-28] MEDS ORDERED: NITROFURANTOIN MONOHYD/M-CRYST 100 MG CAP PO ONE (21:00)
[2022-10-28] MEDS: SENNOSIDES-DOCUSATE SODIUM 1 EACH TAB PO SCH (22:47)
[2022-10-29] MEDS: IBUPROFEN 600 MG TAB PO SCH ×3 (06:05→14:10)
[2022-10-29] MEDS ORDERED: LEVOTHYROXINE 75 MCG TAB PO SCH (06:30)
[2022-10-29] MEDS: SENNOSIDES-DOCUSATE SODIUM 1 EACH TAB PO SCH (07:42)
[2022-10-29 08:26] VITALS: TEMP 97.6
--- NOTE | 2022-10-29 08:50 | P.HPOB ---
History of Present Illness H&P Date: 10/28/22 Chief Complaint: IUP at 39 0/7 weeks This is a 18-year-old at 39-0/7 weeks that presents for induction of labor. Patient has been receiving routine care with myself which has been essentially uncomplicated. Patient has noted increasing maternal discomfort therefore elected induction of labor. this morning patient does note good movement notes an occasional contraction but denies loss of fluid or vaginal bleeding. Review of Systems Constitutional: Denies chills, Denies fatigue, Denies fever Ears, nose, mouth and throat: Denies headache Cardiovascular: Reports leg edema Respiratory: Denies dyspnea Gastrointestinal: Denies constipation, Denies diarrhea, Denies nausea, Denies vomiting Genitourinary: Reports Past Medical History Past Medical History: No Reported History Additional Past Medical History / Comment(s): intermittent abdominal pain,hx polycystic ovarian disease History of Any Multi-Drug Resistant Organisms: None Reported Past Surgical History: No Surgical Hx Reported Additional Past Surgical History / Comment(s): WISDOM TEETH Past Anesthesia/Blood Transfusion Reactions: No Reported Reaction Additional Past Anesthesia/Blood Transfusion Reaction / Comment(s): no hx blood transfusion Past Psychological History: Anxiety, Depression Smoking Status: Never smoker Past Alcohol Use History: None Reported Past Drug Use History: None Reported - Past Family History Father Family Medical History: No Reported History Medications and Allergies Home Medications Medication Instructions Recorded Confirmed Type Levothyroxine Sodium [Synthroid] 75 mcg PO DAILY 10/19/22 10/28/22 History Nitrofurantoin Monohyd/M-Cryst 1 tab PO ONCE 10/28/22 10/28/22 History [Macrobid] Allergies Allergy/AdvReac Type Severity Reaction Status Date / Time No Known Allergies Allergy Verified 10/28/22 06:03 Exam Osteopathic Statement: *. No significant issues noted on an osteopathic structural exam other than those noted in the History and Physical/Consult. Vital Signs Temp Pulse Resp BP Pulse Ox 10/28/22 06:02 98 F 88 17 123/69 98 Intake and Output 10/27/22 10/28/22 10/28/22 22:59 06:59 14:59 Other: Weight 113.852 kg Targeted physical exam was performed in this date and class a regional drivers a well- nourished well-developed female in no acute distress, breathing is noted to be nonlabored, heart has a regular rate and rhythm, abdomen is gravid and appropriate for gestational age, on cervical exam she is noted to be 3-4, 50, -1 station amniotomy is performed and clear fluid was obtained. heart tones returned be category 1 and she is nayana irregularly. Results Result Diagrams: 10/28/22 06:20 Abnormal Lab Results - Last 24 Hours (Table) 10/28/22 Range/Units 06:20 Hgb 11.1 L (11.4-16.0) gm/dL Hct 33.9 L (34.0-46.0) % MCV 78.3 L (80.0-100.0) fL Assessment and Plan (1) Term Current Visit: No Status: Acute Code(s): Z34.90 - ENCNTR FOR SUPRVSN OF NORMAL , UNSP, UNSP TRIMESTER SNOMED Code(s): 05692740 Plan: 18-year-old at 39-0/7 weeks that presents for elective induction of labor. Patient is admitted to labor and delivery and Pitocin induction of labor is begun per hospital protocol. Amniotomy was performed clear fluid was obtained. Options for analgesia are discussed including nitrous, Stadol, epidural. Patient declines and states she prefers a nonmedicated delivery. Anticipate spontaneous vaginal delivery later this afternoon.
--- NOTE | 2022-10-29 08:50 | P.DS ---
Providers Date of admission: 10/28/22 05:58 Expected date of discharge: 10/29/22 Attending physician: Usha Mario Primary care physician: Stated None - Discharge Diagnosis(es) (1) Term Current Visit: No Status: Acute (2) Obstetric vaginal laceration Current Visit: No Status: Acute (3) Status post vaginal delivery Current Visit: No Status: Acute Hospital Course: this is a 26-year-old G2 now P2 that presented to labor and delivery yesterday 10/28 at 39 0/7 weeks for induction of labor. Patient had been receiving routine care which has been essentially uncomplicated. For full details on this patient please see dictated history and physical. Patient was admitted to labor and delivery and Pitocin induction of labor was begun. Amniotomy was performed clear fluid was obtained. Patient progressed through labor eventually becoming complete. Patient underwent a normal spontaneous vaginal delivery of a viable female at 1318, weight of 7 lbs. 14 oz. Patient did sustain a labial laceration which was repaired in the usual fashion with 4-0 chromic. patient's course has been uneventful. On this day #1 she is ambulating and voiding without difficulty. She is tolerating a regular diet without nausea or vomiting. She states her pain is well-controlled. she states lochia is moderate. She denies concerns and would like discharge home if is discharged along with mom at 24 hours. Patient Condition at Discharge: Good Plan - Discharge Summary New Discharge Prescriptions: No Action Levothyroxine Sodium [Synthroid] 75 mcg PO DAILY Nitrofurantoin Monohyd/M-Cryst [Macrobid] 1 tab PO ONCE Discharge Medication List Levothyroxine Sodium [Synthroid] 75 mcg PO DAILY 10/19/22 [History] Nitrofurantoin Monohyd/M-Cryst [Macrobid] 1 tab PO ONCE 10/28/22 [History] Follow up Appointment(s)/Referral(s): Usha Mario DO [Doctor of Osteopathic Medicine] - 4 Weeks Patient Instructions/Handouts: Vaginal Delivery (DC), Vaginal Delivery (GEN) Activity/Diet/Wound Care/Special Instructions: patient was counseled on care. No intercourse or tub baths for 6 weeks . Patient is to call the office and be seen in 4 weeks for routine post check. [id number] ibuprofen 600 mg or 3 tablets every 6 hours as needed. Discharge Disposition: HOME SELF-CARE
[2022-10-29 12:27] VITALS: BP 111/75; PULSE 86
== END 2022-10-29 14:15 | disposition home or self-care (01) | DRG 807 ==
LOC: 4FBP 05:58
PROVIDERS: ADMIT Obstetrics & Gynecology Obstetrics; ATTEND Obstetrics & Gynecology Obstetrics
PROC: 10E0XZZ Delivery of Products of Conception, External Approach (ICD-10-PCS; principal; 2022-10-28)
PROC: 0HQ9XZZ Repair Perineum Skin, External Approach (ICD-10-PCS; 2022-10-28)
PROC: 10907ZC Drainage of Amniotic Fluid, Therapeutic from Products of Conception, Via Natural or Artificial Opening (ICD-10-PCS; 2022-10-28)
PROC: 3E033VJ Introduction of Other Hormone into Peripheral Vein, Percutaneous Approach (ICD-10-PCS; 2022-10-28)
DX: O70.0 First degree perineal laceration during delivery (principal); Z37.0 Single live birth; Z3A.39 39 weeks gestation of pregnancy; Z79.890 Hormone replacement therapy
CPT/HCPCS: 85025; 86850; 86900; 86901

== ENCOUNTER 2024-06-10 10:09 | Outpatient (CLI) | payer OTHER ==
[2024-06-10 10:42] LABS: Glucose,Whole Blood 77 mg/dL (70-110)
[2024-06-10 11:54] VITALS: BP 131/69; PULSE 88; RESP 18; TEMP 98.3
--- NOTE | 2024-07-22 09:21 | P.MSEPDOC ---
Presenting Problems - Arrival Data Date of Arrival on Unit: 06/10/24 Time of Arrival on Unit: 10:09 Mode of Transport: Ambulatory - Complaint OB-Reason for Admission/Chief Complaint: Rule Out SROM Comment: ? SROM 0600 today. Medical History - Information : 3 Para: 2 Term: 2 : 0 Abortions: Spontaneous or Elective: 0 Number of Living Children: 2 - Gestational Age Gestational Age by REGINA (wks/days): 38 Weeks and 3 Days - History Complications: GDM Comment: accu check 77 today Review of Systems - Review of Systems Constitutional: No problems Breast: No problems ENT: No problems Cardiovascular: No problems Respiratory: No problems Gastrointestinal: No problems Genitourinary: No problems Musculoskeletal: No problems Neurological: No problems Skin: No problems Vital Signs - Temperature Temperature: 98.3 F Temperature Source: Oral - Pulse Right Sitting Brachial Pulse Rate: 88 Pulse Assessment Method: Automatic Cuff - Respirations Respiratory Rate: 18 Oxygen Delivery Method: Room Air O2 Sat by Pulse Oximetry: 98 - Blood Pressure Right Arm Sitting Blood Pressure: 131/69 Blood Pressure Mean: 89 Blood Pressure Source: Automatic Cuff Medical Screen Scoring - Cervical Exam Dilation (cm): 4 Effacement (%): 60 Station: -2 Membranes: Intact - Uterine Contractions Intensity: Mild Resting: Soft to palpation - Assessment - Baby A Baseline FHR: 125 Heart Rate - NICHD Category: Category I (Normal) NST: Reactive Physician Notification - Physician Notified Physician Notified Date: 06/10/24 Physician Notified Time: 11:45 Physician: Usha Mario New Order Received: Yes (dc home, will be seen in the office today at 3:15) - Notification Comment Comment: dc home Maternal Triage Index - Maternal Triage Index Presenting for scheduled procedure w/no complaint: No - Stat/Priority 1 Stat Priority 1: No - Urgent/Priority 2 Urgent Priority 2: No - Prompt/Priority 3 Prompt Priority 3: No - Non-Urgent/Priority 4 Non-Urgent Priority 4: Yes Criteria Met for Priority 4: Amnisure neg, SVE 4/60 with no change in one hour. occasional cx and denies pain today. Disposition - Disposition OB Disposition: Discharge to home, Written follow up instructions reviewed Discharge Date: 06/10/24 Discharge Time: 11:54 I agree with the RN Medical Screening Exam: Yes Case reviewed; plan agreed upon as documented in EMR&OBIX.: Yes Diagnosis: FALSE LABOR AT OR AFTER 37 COMPLETED WEEKS OF GESTATION
== END 2024-06-10 11:55 | disposition home or self-care (01) ==
LOC: FBPOP 10:09
PROVIDERS: ATTEND Obstetrics & Gynecology Obstetrics
CPT/HCPCS: 59025; 84112; 99213

== ENCOUNTER 2024-06-10 16:42 | Inpatient (IN) | payer OTHER ==
[2024-06-10] MEDS ORDERED: CARBOPROST TROMETHAMINE 250 MCG/ML 1 ML AMP IM PRN (17:39)
[2024-06-10] MEDS ORDERED: OXYTOCIN 10 UNIT/ML 1 ML VIAL IM PRN (17:39)
[2024-06-10] MEDS ORDERED: TERBUTALINE 1 MG/ML VIAL SQ PRN (17:39)
[2024-06-10] MEDS ORDERED: METHYLERGONOVINE 0.2 MG/ML 1 ML AMP IM PRN (17:39)
[2024-06-10] MEDS ORDERED: miSOPROStoL 200 MCG TAB PO PRN (17:39)
[2024-06-10] MEDS ORDERED: miSOPROStoL 200 MCG TAB RECTAL PRN (17:39)
[2024-06-10] MEDS ORDERED: LIDOCAINE 0.5% (PF) 5 MG/ML (50 ML SDV) SQ PRN (17:39)
[2024-06-10] MEDS ORDERED: TRANEXAMIC 1,000 MG/100ML-NACL 1,000 MG in EMPTY BAG 1 BAG IV PRN (17:39)
[2024-06-10] MEDS: OXYTOCIN 30 UNITS/500 ML NS 30 UNIT in SALINE 1 500ML.BAG IV SCH (17:53)
[2024-06-10 17:56] LABS: Basophils # (A) 0.1 k/uL (0-0.2); Basophils % (A) 1 %; Eosinophils # (A) 0.1 k/uL (0-0.7); Eosinophils % (A) 1 %; HCT 32.8 % (34.0-46.0); HGB 10.3 gm/dL (11.4-16.0); Hypochromasia Moderate; Lymphocytes # (A) 1.4 k/uL (1.0-4.8); Lymphocytes % (A) 17 %; MCH 23.7 pg (25.0-35.0); MCHC 31.4 g/dL (31.0-37.0); MCV 75.5 fL (80.0-100.0); Mean Platelet Volume 10.9; Microcytosis Slight; Monocytes # (A) 0.5 k/uL (0-1.0); Monocytes % (A) 6 %; Neutrophils # (A) 6.3 k/uL (1.3-7.7); Neutrophils % (A) 75 %; Platelet Count 181 k/uL (150-450); RBC 4.35 m/uL (3.80-5.40); RDW 15.3 % (11.5-15.5); WBC 8.5 k/uL (3.8-10.6)
--- NOTE | 2024-06-10 18:05 | P.HPOB ---
History of Present Illness H&P Date: 06/10/24 Chief Complaint: BP at 38-3/7 weeks, advanced cervical dilation 28-year-old G3, P2 at 38-3/7 weeks that presents to labor and delivery from the office after noted advance cervical dilation. Patient states she awoke this morning around 530 and felt a pop followed by leakage of fluid. Patient presented to labor and delivery where rupture of membranes was ruled out, patient was noted to be 4 cm. Patient had an appointment in the office this afternoon and was noted to be 6+ centimeters. Patient was noting occasional cramping/contractions at the time. Patient has been receiving routine care which has been essentially uncomplicated. Patient does have a diagnosis of diet-controlled gestational diabetes. Patient notes good movement. On blood work this patient has a blood type of a positive, rubella status immune, RPR is nonreactive, hepatitis B surface and is negative, HIV negative. Beta strep culture is negative. Review of Systems Constitutional: Denies chills, Denies fatigue, Denies fever Ears, nose, mouth and throat: Denies headache Cardiovascular: Reports leg edema Respiratory: Denies dyspnea Gastrointestinal: Denies constipation, Denies diarrhea, Denies nausea, Denies vomiting Genitourinary: Reports Past Medical History Past Medical History: No Reported History Additional Past Medical History / Comment(s): intermittent abdominal pain,hx polycystic ovarian disease History of Any Multi-Drug Resistant Organisms: None Reported Past Surgical History: No Surgical Hx Reported Additional Past Surgical History / Comment(s): WISDOM TEETH Past Anesthesia/Blood Transfusion Reactions: No Reported Reaction Additional Past Anesthesia/Blood Transfusion Reaction / Comment(s): no hx blood transfusion Smoking Status: Never smoker - Past Family History Father Family Medical History: No Reported History Medications and Allergies Home Medications Medication Instructions Recorded Confirmed Type No Known Home Medications 06/10/24 06/10/24 History Allergies Allergy/AdvReac Type Severity Reaction Status Date / Time No Known Allergies Allergy Verified 10/28/22 06:03 Exam Osteopathic Statement: *. No significant issues noted on an osteopathic structural exam other than those noted in the History and Physical/Consult. Targeted physical exam is performed this date General Is a well-nourished well- developed female in no acute distress, breathing is nonlabored, heart has a regular rhythm, abdomen is gravid, on cervical exam she is 6+, 50, high station amniotomy is performed and copious clear fluid is obtained. heart tones are noted to be category 1 and she is correct nayana every 2 to 3 minutes. Results Result Diagrams: 06/10/24 17:40 Abnormal Lab Results - Last 24 Hours (Table) 06/10/24 Range/Units 17:40 Hgb 10.3 L (11.4-16.0) gm/dL Hct 32.8 L (34.0-46.0) % MCV 75.5 L (80.0-100.0) fL MCH 23.7 L (25.0-35.0) pg Assessment and Plan (1) Term Current Visit: No Status: Acute Code(s): Z34.90 - ENCNTR FOR SUPRVSN OF NORMAL , UNSP, UNSP TRIMESTER SNOMED Code(s): 33697070 Plan: 28-year-old G3, P2 at 38-3/7 weeks that presents from the office with advanced cervical dilation, early labor. Patient was noted to be 4 cm early in the day, 6 cm when seen for her visit this afternoon. Patient was sent to labor and delivery for direct admission. Patient does desire an unmedicated .
[2024-06-10 19:52] LABS: Glucose,Whole Blood 87 mg/dL (70-110)
[2024-06-10] MEDS ORDERED: BENZOCAINE/MENTHOL SPRAY 1 GM/SPRAY AEROSOL TOPICAL PRN (20:45)
[2024-06-10] MEDS ORDERED: diphenhydrAMINE 50 MG CAP PO PRN (20:45)
[2024-06-10] MEDS ORDERED: ZOLPIDEM 5 MG TAB PO PRN (20:45)
[2024-06-10] MEDS ORDERED: SIMETHICONE 80 MG CHEWABLE PO PRN (20:45)
[2024-06-10] MEDS ORDERED: LANOLIN CREAM 1 GM TUBE TOPICAL PRN (20:45)
[2024-06-10] MEDS ORDERED: HYDROCORTISONE 2.5% RECTAL CREAM 30 GM TUBE RECTAL PRN (20:45)
[2024-06-10] MEDS ORDERED: diphenhydrAMINE 50 MG/ML 1 ML VIAL IVP PRN ×2 (20:45)
[2024-06-10] MEDS ORDERED: diphenhydrAMINE 25 MG CAP PO PRN (20:45)
--- NOTE | 2024-06-10 20:50 | P.PROBDLV ---
Vaginal Delivery Note - . Vaginal Delivery Note: 28 year-old 3 para 2-0-0-2 at 38-3/7 weeks presents to labor and delivery from the office after advanced cervical dilation was noted. Patient was seen in OB triage earlier in the day and was noted to be 4 cm, patient presented to her routine visit and was noted to be 6+ centimeters. Patient was sent to the hospital for direct admission. Patient was admitted and amniotomy was performed. Clear fluid was obtained, infant was noted to be in his 3 station, therefore Pitocin augmentation of labor was begun to pre-gait the out of the pelvis. Patient made quick progress toward complete. Once completely dilated patient began pushing and had a normal spontaneous vaginal delivery of a viable female infant. After 2-minute delay the umbilical was doubly clamped and cut. The placenta delivered spontaneously intact with a three-vessel cord being noted. Uterus was noted to be firm and below the umbilicus. Estimated blood loss 100 cc Patient and infant tolerated delivery well and are resting comfortably All counts were noted to be correct x 2
[2024-06-10] MEDS: IBUPROFEN 600 MG TAB PO SCH (23:08)
[2024-06-11] MEDS: OXYTOCIN 30 UNITS/500 ML NS 30 UNIT in SALINE 1 500ML.BAG IV SCH (00:38)
[2024-06-11] MEDS: ACETAMINOPHEN TAB 325 MG TAB PO PRN (01:29)
[2024-06-11 04:58] LABS: Basophils # (A) 0.1 k/uL (0-0.2); Basophils % (A) 0 %; Eosinophils # (A) 0.1 k/uL (0-0.7); Eosinophils % (A) 1 %; HCT 31.3 % (34.0-46.0); HGB 10.1 gm/dL (11.4-16.0); Hypochromasia Marked; Lymphocytes # (A) 1.8 k/uL (1.0-4.8); Lymphocytes % (A) 15 %; MCH 24.6 pg (25.0-35.0); MCHC 32.2 g/dL (31.0-37.0); MCV 76.6 fL (80.0-100.0); Mean Platelet Volume 11.9; Microcytosis Slight; Monocytes # (A) 0.8 k/uL (0-1.0); Monocytes % (A) 7 %; Neutrophils # (A) 9.4 k/uL (1.3-7.7); Neutrophils % (A) 77 %; Platelet Count 143 k/uL (150-450); RBC 4.09 m/uL (3.80-5.40); RDW 15.1 % (11.5-15.5); WBC 12.3 k/uL (3.8-10.6)
[2024-06-11 08:03] VITALS: RESP 18
[2024-06-11] MEDS: SENNOSIDES-DOCUSATE SODIUM 1 EACH TAB PO SCH (08:08)
--- NOTE | 2024-06-11 09:31 | P.DS ---
Providers Date of admission: 06/10/24 16:42 Expected date of discharge: 06/11/24 Attending physician: Usha Mario Primary care physician: Stated None - Discharge Diagnosis(es) (1) Term Current Visit: No Status: Acute (2) Status post vaginal delivery Current Visit: No Status: Acute (3) GDM (gestational diabetes mellitus), class A1 Current Visit: Yes Status: Acute Hospital Course: 28-year-old 3 para 2-0-0-2 that presented from the office at 38-3/7 weeks after noted cervical change to 6 cm. Patient's care has been complicated by a diagnosis of gestational diabetes which was well-controlled with diet alone. Patient was seen earlier in the day for rule out rupture of membranes, AmniSure was negative and she was noted to be 4 cm. Patient did have an appointment in the office which she kept and felt as if she was nayana. Patient was noted to be 6 cm upon presentation to the office. Patient was directly admitted to labor and delivery, amniotomy was performed and clear fluid was obtained. Patient was noted to be 6+ centimeters at the time. Pitocin augmentation of labor was begun given high station of the fetus at the time of rupture of membranes. Patient quickly progressed to complete began pushing and had a normal spontaneous vaginal delivery of a viable female at 2030, weight of 8 pounds 6.9 ounces. Apgars of 8 and 9 at 1 and 5 minutes respectively. No vaginal lacerations were appreciated after delivery of the . Patient's course has been uneventful. In this day #1 she is ambulating and voiding without difficulty. She is tolerating regular diet without nausea or vomiting. She states her pain is well-controlled. She does wish discharge home. Patient Condition at Discharge: Good Plan - Discharge Summary New Discharge Prescriptions: No Action No Known Home Medications Discharge Medication List No Known Home Medications 06/10/24 [History]
[2024-06-11 16:23] VITALS: BP 130/84; PULSE 69; TEMP 98.1
[2024-06-11] MEDS: LACTATED RINGERS 1,000 ML IV SCH (19:47)
== END 2024-06-11 20:50 | disposition home or self-care (01) | DRG 560 ==
LOC: 4FBP 16:42
PROVIDERS: ADMIT Obstetrics & Gynecology Obstetrics; ATTEND Obstetrics & Gynecology Obstetrics
PROC: 10E0XZZ Delivery of Products of Conception, External Approach (ICD-10-PCS; principal; 2024-06-10)
PROC: 10907ZC Drainage of Amniotic Fluid, Therapeutic from Products of Conception, Via Natural or Artificial Opening (ICD-10-PCS; 2024-06-10)
DX: O24.420 Gestational diabetes mellitus in childbirth, diet controlled (principal); Z37.0 Single live birth; Z3A.38 38 weeks gestation of pregnancy